=== PATIENT | male | born 1945 | race Caucasian/White ===

== ENCOUNTER 2018-11-08 07:22 | Emergency (ER) | payer MEDICARE ==
[~2018-11-08] VITALS: Ht 167.6 cm; Wt 65.8 kg
[2018-11-08] MEDS ORDERED: KEFLEX500 MG PO (08:01)
== END 2018-11-08 08:16 | disposition home or self-care (01) ==
LOC: ED 07:22
DX: L03.124 Acute lymphangitis of left upper limb (principal)
CPT/HCPCS: 90471; 90715; 99283

== ENCOUNTER 2024-12-18 08:16 | Emergency (ER) | payer BC ==
[~2024-12-18] VITALS: Ht 167.6 cm; Wt 66.6 kg
[~2024-12-18 08:16] MED LIST: KEFLEX500 MG PO
[2024-12-18 09:12] LABS: BASOPHILS 0.6 % (0.2-1.2); EOSINOPHILS 0.5 % (0.8-7.0); LYMPHOCYTES 9.7 % (21.8-53.1); MCH 30.6 PG (25.7-32.2); MCHC 34.2 g/dL (32.3-36.5); MCV 89.4 fL (79.0-92.2); MONOCYTES 7.6 % (5.3-12.2); NEUTROPHILS 81.4 % (34.0-67.9); RBC 5.30 M/uL (4.63-6.08)
[2024-12-18 09:45] LABS: ALT (SGPT) 85.0 U/L (14-59); AST (SGOT) 57.0 U/L (15-37); GLOMERULAR FILTRATION RATE,EST 72.0 mL/min (>60); PROTEIN, TOTAL 7.4 g/dL (6.4-8.2); UREA NITROGEN 23.0 mg/dL (7-18)
[2024-12-18] MEDS ORDERED: FUROSEMIDE 40 MG/4 ML VIAL IV ONE (10:30)
[2024-12-18] MEDS ORDERED: LASIX40 MG PO (12:34)
[2024-12-18] MEDS ORDERED: KLOR-CON M1010 MEQ PO (12:34)
[2024-12-18 14:00] VITALS: BP 146/93
--- NOTE | 2024-12-19 06:07 | EKG ---
[facility] [address] [facility] [address] [place] [address] Signed Sinus tachycardia with frequent premature ventricular complexes Possible Left atrial enlargement Minimal voltage criteria for LVH, may be normal variant ( [place] product ) Nonspecific ST and T wave abnormality Abnormal ECG No previous ECGs available Confirmed by RUSTY TALBOT MD ([id number]) on 12/19/2024 6:07:12 AM Electronically Signed By: RUSTY TALBOT 12/19/24 0607 PATIENT NAME: KANNAN BELLO Electrocardiogram DATE OF : 47 PHYSICIAN: RUSTY TALBOT REPORT #: [id number] REPORT IS CONFIDENTIAL AND NOT TO BE RELEASED WITHOUT AUTHORIZATION
== END 2024-12-18 14:04 | disposition home or self-care (01) ==
LOC: ED 08:16
PROVIDERS: Emergency Medicine
DX: I50.9 Heart failure, unspecified (principal); Z88.8 Allergy status to other drugs, medicaments and biological substances
CPT/HCPCS: 36415; 71045; 80053; 83735; 83880; 84484; 85025; 93005; 93010; 93306; 96374; 99285-25; J1938